=== PATIENT | male | born 1995 | race Caucasian/White ===

== ENCOUNTER 2017-01-31 22:47 | Emergency (ER) | payer SELFPAY ==
[2017-01-31 22:55] VITALS: RESP 18; TEMP 98.6
[2017-01-31] MEDS ORDERED: IPRATROPIUM/ALBUTEROL 3 ML DEYVIAL IH ONE (23:16)
[2017-01-31] MEDS ORDERED: ACETAMINOPHEN 325 MG TAB PO ONE (23:38)
[2017-01-31] MEDS ORDERED: diphenhydrAMINE 25 MG CAP PO ONE (23:39)
[2017-01-31] MEDS ORDERED: AZITHROMYCIN 250 MG TAB PO ONE (23:39)
[2017-01-31] MEDS ORDERED: FAMOTIDINE 20 MG TAB PO ONE (23:39)
[2017-01-31] MEDS ORDERED: HYDROCODONE/APAP 5/325 TAB PO ONE (23:39)
--- NOTE | 2017-01-31 23:40 | EDPHY ---
H & P Stated Complaint: cough for week Time Seen by Provider: 01/31/17 23:02 HPI/ROS: CHIEF COMPLAINT: Cough HISTORY OF PRESENT ILLNESS: 21-year-old male presents emergency department with his mother and father reporting a worsening cough over the last week. Patient states he started with fevers, chills, body aches, nasal congestion and cough, most of his symptoms have resolved aside from his cough that is worsening. It is productive, worse in the mornings. Patient feels fatigued, he is a nonsmoker, denies drug and alcohol use. No known sick contacts. Patient reports coughing with deep breaths, he reports right lateral chest pain with coughing. Patient is taking [id number] Mucinex cough syrup for the last 3 days, 2 days ago he noticed a intermittent itchy red rash to his arms. He denies tongue swelling, throat swelling, difficulty swallowing. REVIEW OF SYSTEMS: A comprehensive 10 point review of systems is otherwise negative aside from elements mentioned in the history of present illness. Source: Patient Exam Limitations: No limitations - Personal History Current Tetanus/Diphtheria Vaccine: Yes Current Tetanus Diphtheria and Acellular Pertussis (TDAP): Yes - Medical/Surgical History Hx Asthma: No Hx Chronic Respiratory Disease: No Hx Diabetes: No Hx Cardiac Disease: No Hx Renal Disease: No Hx Cirrhosis: No Hx Alcoholism: No Hx HIV/AIDS: No Hx Splenectomy or Spleen Trauma: No - Social History Smoking Status: Former smoker Alcohol Use: None Drug Use: None - Physical Exam Exam: General: Alert, pale ENT: Tympanic membranes clear, external auditory canal, external ear and surrounding soft tissue including over the mastoid unremarkable. Nasopharynx is injected, there is no rhinorrhea. Oropharynx with erythema, no edema. There is no exudate. No tonsillar hypertrophy. No asymmetry. The uvula is midline. No elevation of tongue. There is no hoarseness. No drooling, patient has good control of their oral secretions. No trismus. No stridor. Cardiac: Tachycardic rate, Regular rhythm. Respiratory: Breath sounds diminished on right Neurological: no meningismus. Skin: Urticaria to bilateral forearms Constitutional: Initial Vital Signs Temperature (C) 37 C 01/31/17 22:50 Heart Rate 118 H 01/31/17 22:50 Respiratory Rate 18 01/31/17 22:50 Blood Pressure 131/69 H 01/31/17 22:50 O2 Sat (%) 92 01/31/17 22:50 O2 Delivery Mode Room Air Allergies/Adverse Reactions: No Known Allergies Allergy (Unverified 01/31/17 22:49) Home Medications: Medication Instructions Recorded Azithromycin [Zithromax] 250 mg PO DAILY #4 tab 02/01/17 Famotidine [Pepcid] 40 mg PO DAILY #5 tablet 02/01/17 Medical Decision Making - Diagnostics Imaging Results: Imaging Impressions Chest X-Ray 01/31/17 23:17 Impression: Suspect pneumonia superimposed upon underlying airways disease. Imaging: I viewed and interpreted images myself ED Course/Re-evaluation: 21-year-old male presents with cough x1 week that is worsening. Chest x-ray obtained showing a bilateral pneumonia. Patient's room air oxygen saturations are between 92 and 95% in the emergency department. He is given a DuoNeb. Patient is given his 1st dose of Zithromax, [place] for cough, Benadryl and Pepcid for rash. Think the rash is likely due to a Mucinex syrup that he just started taking. I have instructed him to stop this. Patient will be discharged home with a prescription for Zithromax, sent home with an albuterol inhaler and Lafayette prepack. He will also be given a prescription for Pepcid and instructed to take Benadryl. Patient is given strict return precautions for any worsening symptoms, difficulty breathing, new symptoms or concerns. Differential Diagnosis: Diagnosis considered but not limited to pneumonia, bronchitis, urticaria, allergic reaction, contact dermatitis - Data Points Medications Given: Discontinued Medications Acetaminophen (Tylenol) 650 mg PO EDNOW ONE Stop: 01/31/17 23:39 Last Admin: 01/31/17 23:49 Dose: 650 mg Hydrocodone Bitart/Acetaminophen ([place] 5/325) 1 tab PO EDNOW ONE Stop: 01/31/17 23:40 Last Admin: 01/31/17 23:50 Dose: 1 tab Albuterol/Ipratropium (Duoneb) 3 ml IH EDNOW ONE Stop: 01/31/17 23:17 Last Admin: 01/31/17 23:30 Dose: 3 ml Azithromycin (Zithromax) 500 mg PO EDNOW ONE PRN Reason: Protocol Stop: 01/31/17 23:40 Last Admin: 01/31/17 23:50 Dose: 500 mg Diphenhydramine HCl (Benadryl) 25 mg PO EDNOW ONE Stop: 01/31/17 23:40 Last Admin: 01/31/17 23:50 Dose: 25 mg Famotidine (Pepcid) 40 mg PO EDNOW ONE Stop: 01/31/17 23:40 Last Admin: 01/31/17 23:50 Dose: 40 mg Departure - Departure Disposition: Home, Routine, Self-Care Clinical Impression: Urticaria Pneumonia Qualifiers: Pneumonia type: due to unspecified organism Laterality: bilateral Lung location : lower lobe of lung Qualified Code(s): J18.9 - Pneumonia, unspecified organism Condition: Good Instructions: Community Acquired Pneumonia (ED), Urticaria (ED), Hydrocodone/ Acetaminophen (By mouth), Albuterol (By breathing) Additional Instructions: Take 250 mg of Zithromax daily for the next 4 days starting tomorrow, use 1-2 puffs of the albuterol every 4-6 hours as needed for cough, take 1 [place] every 4-6 hours as needed for cough. You can alternate Tylenol with ibuprofen for body aches and fevers. Drink plenty of fluids. Take 25 mg of Benadryl every 6 hours for rash to her arms, take 40 mg of Pepcid daily for 5 days for your rash. Return to the emergency department immediately for any worsening symptoms, shortness of breath, chest pain, new symptoms or concerns. [facility] symptoms that are not improving in the next 3-5 days Referrals: [facility] [Outside] - As per Instructions Prescriptions: Azithromycin [Zithromax] 250 mg PO DAILY #4 tab Famotidine [Pepcid] 40 mg PO DAILY #5 tablet
[2017-02-01] MEDS ORDERED: HYDROCOD/APAP 5/325 PREPACK#6 BTL TAKEHOME ONE (00:01)
[2017-02-01] MEDS ORDERED: ALBUTEROL INH PREPACK MDI TAKEHOME ONE (00:01)
[2017-02-01 00:34] VITALS: BP 107/66; PULSE 108; O2SAT 93
== END 2017-02-01 00:32 | disposition home or self-care (01) ==
DX: J18.9 Pneumonia, unspecified organism (principal); L50.9 Urticaria, unspecified; Z87.891 Personal history of nicotine dependence